=== PATIENT | male | born 1955 | race Caucasian/White ===

== ENCOUNTER 2017-03-28 14:37 | Emergency (ER) | payer OTHER ==
[~2017-03-28 14:37] MED LIST: REGLAN10 MG PO
--- NOTE | 2017-03-28 14:57 | ED MVC/FALL/TRAUMA COMPLAINT ---
History of Present Illness General Chief Complaint: Fall Stated Complaint: FALL Source: patient Exam Limitations: no limitations Vital Signs & Intake/Output Vital Signs & Intake/Output Vital Signs Date Time Temp Pulse Resp B/P B/P Pulse O2 O2 Flow FiO2 Mean Ox Delivery Rate 03/28 1502 98.2 116 18 126/76 95 Room Air 03/28 1442 98.9 108 20 130/80 96 Room Air Allergies Coded Allergies: MDX - PCN (penicillin) (PCN (PENICILLIN)) (Intermediate, HIVES 01/25/15) Reconcile Medications Clindamycin HCl (Cleocin HCl) 300 MG CAPSULE 1 CAP PO TID DENTAL INFECTION METOCLOPRAMIDE HCL (Reglan) 10 MG TAB 1 TAB PO Q6P PRN NAUSEA/VOMITING 30 minutes before meals and bedtime Triage Note: PT BIBA FOR FALL. PT STATES HE WAS WALKING ON THE SIDE WALK WHEN HE LOST HIS BALANCE AND FELL HITTING HIS FACE ON THE GROUND. PT DENIES LOC AND DENIES TAKING BLOOD THINNERS. PT STATES HE HAS A HX OF GAIT ISSUES. PT HAS C-COLLAR IN PLACE BY EMS. PT DENIES ANY NECK PAIN. PT HAS A LACERATION BELOW NOSE/ABOVE TOP LIP. PT IS HOLDING DRESSING TO AREA. PT HAS MINIMAL BLEEDING AT THIS TIME. PER EMS PT HAD A BLOOD NOSE SPACE OPERATIONS. Triage Nurses Notes Reviewed? yes Onset: Abrupt Duration: minute(s):, constant, continues in ED Timing: single episode today Severity: moderate, severe Loss of Consciousness: brief (seconds) No Modifying Factors: none HPI: 61-year-old male comes into emergency room for further evaluation after tripping outside and fell forward face planted on the ground. Chipped his front tooth. Associated bleeding and lip laceration. Denies any loss of consciousness. Some facial pain. Denies any neck pain chest pain or extremity pain. Denies injury anywhere else in his body. Denies any other associated symptoms. (RICARDO [place]) Past History Travel History Traveled to [place] past 21 day No Medical History Any Pertinent Medical History? see below for history Neurological: UNSTEADY GAIT Endocrine: diabetes Other Medical Hx: Neurological disorder (patient not sure of name) Surgical History Surgical History: non-contributory Psychosocial History What is your primary language Belgian Tobacco Use: Never used Family History Hx Contributory? No (RICARDO [place]) Review of Systems Review of Systems Constitutional: Reports: no symptoms. Eyes: Reports: no symptoms. Ears, Nose, Throat, Mouth: Reports: no symptoms. Respiratory: Reports: no symptoms. Cardiovascular: Reports: no symptoms. Gastrointestinal/Abdominal: Reports: no symptoms. Genitourinary: Reports: no symptoms. Musculoskeletal: Reports: see HPI. Skin: Reports: see HPI. Neurological/Psychological: Reports: no symptoms. All Other Systems: Reviewed and Negative (RICARDO [place]) Physical Exam Physical Exam General Appearance: well developed/nourished, alert, awake Head: lacerations Eyes: Bilateral: normal appearance, PERRL, EOMI. Ears, Nose, Throat, Mouth: POOR DENTITION, BROKEN FRONT INCISOR, PATIENT HAS A COMPLEX LIP LACERATION OF UPPER LIP, EXTENDS FROM THE BASE OF NOSE, THROUGH AND THROUGH THE SKIN, Neck: normal inspection, full range of motion, no midline tenderness Respiratory: no respiratory distress Cardiovascular: regular rate/rhythm Back: normal inspection Extremities: normal range of motion Neurologic/Psych: awake, alert, oriented x 3, normal gait Skin: intact Core Measures ACS in differential dx? No Severe Sepsis Present: No Septic Shock Present: No (RICARDO [place]) Progress Differential Diagnosis: abd injury, C/T/L spine injury, ext injury, ICH, pelvis injury, pnemothorax, spinal cord injury, FACIAL FRACTURES, Plan of Care: Current Medications Sig/Mikal Start time Last Medication Dose Stop Time Status Admin Clindamycin 300 MG ONCE ONE 03/28 1800 UNVr (Cleocin 150MG Cap) 03/28 1801 Diagnostic Imaging: Viewed by Me: CT Scan. Discussed w/RAD: CT Scan. Radiology Impression: SERVICE DATE: 03/28/17 EXAM TYPE: CAT - CT HEAD WO IV CONTRAST; CT MAXILLOFACIAL W/O CON EXAMINATION: 1. CT HEAD WITHOUT CONTRAST 2. CT maxillofacial CLINICAL INFORMATION: Trauma. Fall. COMPARISON: None TECHNIQUE: 1. CT head Contiguous axial imaging was performed from the skull base to vertex without intravenous administration of contrast. Coronal reformatted images performed at CT scanner 2. CT maxillofacial: Axial images obtained through the maxillofacial bones. Coronal and sagittal reformatted images performed at CT scanner Dose: DLP 1448.55 FINDINGS: 1.CT HEAD: There is no evidence of acute intracranial hemorrhage or territorial infarction. No abnormal mass effect or midline shift is seen. Pak to white matter differentiation is well preserved. No extra-axial fluid collections are identified. The ventricles are normal in size. There is no abnormal attenuation within the brain parenchyma. The osseous structures and soft tissues are normal. The mastoid air cells and visualized portions of the paranasal sinuses are well aerated. 2. CT MAXILLOFACIAL: There is a small subcutaneous air collection inferior to the left nasal nares. There is a small chip fracture of the left maxillary spine, sagittal image 135 (800) no fracture of the nasal bones. No additional facial bone fracture. Orbits are intact. Mandible and TMJ joint intact. Normal aeration of the paranasal sinuses. There are dental caries. There is loss of bone at the roots of the frontal teeth in the maxilla bilaterally worse on the right than left. The there are couple teeth in the right frontal maxilla which do not appear to be implanted in bone at the root. There are multiple missing teeth in both maxilla and mandible. IMPRESSION: 1. CT HEAD: No acute intracranial abnormality. 2. CT MAXILLOFACIAL: Small chip fracture of the anterior left maxillary spine with a small subcutaneous air collection adjacent to the fracture. Poor dentition. DICTATED BY: KOKO CALDERÓN MD Comments: 03/28/2017 7:30:42 PM Complex lip laceration. Patient was instructed to return in 3 days for wound check. Patient left before information for the maxillofacial oral surgeon could be provided. Dr. DOTSON was [place]. I called the son-in-law who is the only one I could get a hold of after the patient left in gave him the information and told him to relay to the patient to call tomorrow for follow-up. Patient is supposed to return for a wound check in 3 days and it will be assured again that he has appropriate follow-up. Patient was started on oral antibiotics. There is no signs of intracranial hemorrhage. He is able to walk here steadily with no distress. Clinically looks well otherwise. Understands and agrees with plan of care. Plastic surgery had been consult But they were unable to come into evaluate the patient. dr cooney. Patient also was told that he needed to see the dentist as well. (ALONZO MCCARTHY,RICARDO) Departure Departure Disposition: HOME OR SELF CARE Condition: Stable Clinical Impression Primary Impression: Dental trauma Secondary Impressions: Lip laceration, Maxillary fracture Referrals: PATIENT HAS NO PRIMARY CARE DR (PCP/Family) Additional Instructions: Take clindamycin as prescribed. Come back in 3 days for a wound check. Rinse after eating. Stay away from chips and salty foods. Try to drink clear liquids and soft foods. Please go over all results of today's visit with your primary care doctor. Contact your primary care doctor to let them know you were here in the emergency room. There may be nonspecific findings which may not be related to your visit today here in the emergency room but may require further evaluation and chronic monitoring by your primary care doctor. If you had a laceration today the chance of foreign body always remains. You should follow-up with your primary care doctor for recheck in 3-5 days for a wound check. If you had an x-ray done there is a chance that a fracture could have been missed on initial read and you should follow-up with your primary care doctor for repeat x-rays if symptoms persist. If your blood pressure was elevated here in the emergency room please have rechecked by her primary care doctor within the next 48 hours by your primary care doctor. If you were prescribed a narcotic here in the emergency room or any type of controlled substances you're not allowed to drive while taking this medication or operate any type of heavy machinery. Narcotics can make you feel lightheaded dizziness nausea and can cause constipation. You may need to pickling tank operator a stool softener. Thank you for choosing [facility] emergency room. Please return to the emergency room immediately if you have any other concerns worsening of symptoms. Departure Forms: Customer Survey General Discharge Information Prescriptions: Current Visit Scripts Clindamycin HCl (Cleocin HCl) 1 CAP PO TID #21 CAP (RICARDO [place]) PA/INTELLECTUAL PROPERTY PAR[employer]GAL Co-Sign Statement Statement: ED Attending supervision documentation- I saw and evaluated the patient. I have also reviewed all the pertinent lab results and diagnostic results. I agree with the findings and the plan of care as documented in the PA's/INTELLECTUAL PROPERTY PARALEGAL's documentation. x I have reviewed the ED Record and agree with the PA's/INTELLECTUAL PROPERTY PAR[employer]GAL's documentation. [] Additions or exceptions (if any) to the PAs/INTELLECTUAL PROPERTY PARALEGAL's note and plan are summarized below: [] (SNEHAL CARRASCO,JESSICA) Procedures Laceration/Wound Repair Progress: 2% lidocaine, Betadine prep, 5 mL injected, 5. 0 nylon, 4.0 chromic gut, 10 sutures placed, sterile technique, irrigated with copious amounts of saline, patient tolerated procedure well, (ALONZO MCCARTHY,RICARDO)
[2017-03-28 15:02] VITALS: BP 126/76
--- NOTE | 2017-03-28 16:22 | CT SCAN REPORT ---
EXAMINATION: 1. CT HEAD WITHOUT CONTRAST 2. CT maxillofacial CLINICAL INFORMATION: Trauma. Fall. COMPARISON: None TECHNIQUE: 1. CT head Contiguous axial imaging was performed from the skull base to vertex without intravenous administration of contrast. Coronal reformatted images performed at CT scanner 2. CT maxillofacial: Axial images obtained through the maxillofacial bones. Coronal and sagittal reformatted images performed at CT scanner Dose: DLP 1448.55 FINDINGS: 1.CT HEAD: There is no evidence of acute intracranial hemorrhage or territorial infarction. No abnormal mass effect or midline shift is seen. Pak to white matter differentiation is well preserved. No extra-axial fluid collections are identified. The ventricles are normal in size. There is no abnormal attenuation within the brain parenchyma. The osseous structures and soft tissues are normal. The mastoid air cells and visualized portions of the paranasal sinuses are well aerated. 2. CT MAXILLOFACIAL: There is a small subcutaneous air collection inferior to the left nasal nares. There is a small chip fracture of the left maxillary spine, sagittal image 135 (800) no fracture of the nasal bones. No additional facial bone fracture. Orbits are intact. Mandible and TMJ joint intact. Normal aeration of the paranasal sinuses. There are dental caries. There is loss of bone at the roots of the frontal teeth in the maxilla bilaterally worse on the right than left. The there are couple teeth in the right frontal maxilla which do not appear to be implanted in bone at the root. There are multiple missing teeth in both maxilla and mandible. IMPRESSION: 1. CT HEAD: No acute intracranial abnormality. 2. CT MAXILLOFACIAL: Small chip fracture of the anterior left maxillary spine with a small subcutaneous air collection adjacent to the fracture. Poor dentition.
[2017-03-28] MEDS ORDERED: CLEOCIN HCL300 M1 PO (17:47)
== END 2017-03-28 19:11 ==
LOC: ERH 14:37
DX: S02.40DA Maxillary fracture, left side, initial encounter for closed fracture (principal); S01.511A Laceration without foreign body of lip, initial encounter; S09.93XA Unspecified injury of face, initial encounter; W01.0XXA Fall on same level from slipping, tripping and stumbling without subsequent striking against object, initial encounter; Y93.9 Activity, unspecified; Y92.9 Unspecified place or not applicable
CPT/HCPCS: J2001